=== PATIENT | male | born 1965 | race Caucasian/White ===

== ENCOUNTER 2018-07-04 16:30 | Emergency (ER) | payer SELFPAY ==
[2018-07-04 16:37] VITALS: TEMP 99.2
--- NOTE | 2018-07-04 16:39 | ED PDOC ---
HPI: Psych/Substance Abuse Time Seen by Provider: 07/04/18 16:38 Chief Complaint (Nursing): Substance Abuse Chief Complaint (Provider): etoh History Per: Patient, EMS Additional Complaint(s): 53-year-old male presents to emergency department acutely intoxicated. Patient walked up to a police manager and was noted to be intoxicated so EMS was called for patient to come here. Patient admits to drinking alcohol and snorting cocaine today. He denies any fall or trauma. PMD: unknown Past Medical History Reviewed: Historical Data, Nursing Documentation, Vital Signs Vital Signs: Last Vital Signs Temp 99.2 F 07/04/18 16:34 Pulse 90 07/04/18 16:34 Resp 18 07/04/18 16:34 BP 140/80 07/04/18 16:34 Pulse Ox 99 07/04/18 16:34 - Family History Family History: States: No Known Family Hx - Social History Current smoker - smoking cessation education provided: No Alcohol: > 2 Drinks/Day Drugs: Cocaine - Home Medications Home Medications: Ambulatory Orders Medication Instructions Recorded Cyclobenzaprine [Cyclobenzaprine 10 mg PO DAILY #7 tab 08/09/17 HCl] Naproxen [Naprosyn] 500 mg PO BID PRN #14 tablet 08/09/17 - Allergies Allergies/Adverse Reactions: Allergies Allergy/AdvReac Type Severity Reaction Status Date / Time No Known Allergies Allergy Unverified 08/09/17 01:57 Review of Systems ROS Statement: Except As Marked, All Systems Reviewed And Found Negative Psych: Positive for: Other (etoh and substance abuse) Physical Exam - Reviewed Nursing Documentation Reviewed: Yes Vital Signs Reviewed: Yes - Physical Exam Appears: Positive for: Well, Non-toxic, No Acute Distress Head Exam: Positive for: ATRAUMATIC Skin: Positive for: Normal Color. Negative for: Rash Eye Exam: Positive for: Normal appearance Neck: Positive for: Normal Cardiovascular/Chest: Positive for: Regular Rate, Rhythm Respiratory: Positive for: Normal Breath Sounds Back: Positive for: Normal Inspection Extremity: Positive for: Normal ROM Neurologic/Psych: Positive for: Alert, Other (Intoxicated, answer some questions appropriately) - Laboratory Results Result Diagrams: 07/04/18 17:15 07/04/18 17:15 - ECG O2 Sat by Pulse Oximetry: 99 Pulse Ox Interpretation: Normal Medical Decision Making Medical Decision Makin-year-old intoxicated male. Plan: CBC BMP BAL UDS Potassium is 3.0, 40 mEq of KDur oral dose ordered. BAL: 433 7:30 pm: Patient is awake, alert, has steady gait, asking to leave. Patient is stable for discharge. Disposition - Clinical Impression Clinical Impression: Alcohol intoxication - Patient ED Disposition Is Patient to be Admitted: No Counseled Patient/Family Regarding: Need For Followup - Disposition Referrals: [facility] [place] [Outside] Disposition: Routine/Home Disposition Time: 19:29 Condition: STABLE Instructions: Alcohol Abuse and Alcoholism (DC) Forms: [employer] ([place]) Results - Lab Results Lab Results: 07/04/18 07/04/18 07/04/18 17:40 17:15 17:15 WBC 6.2 RBC 4.19 L Hgb 13.9 Hct 41.8 MCV 99.7 H MCH 33.2 H MCHC 33.3 RDW 14.5 Plt Count 92 L MPV 8.0 Neut % (Auto) 67.3 Lymph % (Auto) 21.3 Har[place] % (Auto) 9.3 Eos % (Auto) 0.1 Baso % (Auto) 2.0 Neut # (Auto) 4.2 Lymph # (Auto) 1.3 Harney # (Auto) 0.6 Eos # (Auto) 0.0 Baso # (Auto) 0.1 Sodium 146 Potassium 3.0 L Chloride 105 Carbon Dioxide 26 Anion Gap 18 BUN 6 L Creatinine 0.7 L Est GFR ( Amer) > 60 Est GFR (Non-Af Amer) > 60 Random Glucose 120 H Calcium 8.4 Urine Opiates Screen Negative Urine Methadone Screen Negative Ur Barbiturates Screen Negative Ur Phencyclidine Scrn Negative Ur Amphetamines Screen Negative U Benzodiazepines Scrn Negative U Oth Cocaine Metabols Positive H U Cannabinoids Screen Negative Alcohol, Quantitative 433 H*
[2018-07-04 17:51] LABS: BASO # 0.1 K/uL (0.0-0.2); EOS % 0.1 % (0.0-4.0); HEMOGLOBIN 13.9 g/dL (12.0-18.0); LYMPH # 1.3 K/uL (1.0-4.3); LYMPH % 21.3 % (20.0-40.0); MEAN CELL VOLUME 99.7 fl (80.0-94.0); MEAN CORPUSCULAR HEMOGLOBIN 33.2 pg (27.0-31.0); MEAN CORPUSCULAR HGB CONC 33.3 g/dL (33.0-37.0); MONO # 0.6 K/uL (0.0-0.8); MONO % 9.3 % (0.0-10.0); NEUT # 4.2 K/uL (1.8-7.0); NEUT % 67.3 % (50.0-75.0); RBC 4.19 Mil/uL (4.40-5.90); RED CELL DISTRIBUTION WIDTH 14.5 % (11.5-14.5); WHITE BLOOD COUNT 6.2 K/uL (4.8-10.8)
[2018-07-04 18:04] LABS: BLOOD UREA NITROGEN 6 mg/dl (9-20); CALCIUM 8.4 mg/dL (8.4-10.2); GFR NON-AFRICAN AMERICAN > 60
[2018-07-04] MEDS ORDERED: Potassium Chloride 20 mEq ER Tab PO STA (18:09)
[2018-07-04 18:15] LABS: BARBITURATES, UR NEGATIVE (NEGATIVE); BENZODIAZEPINES, UR NEGATIVE (NEGATIVE); OPIATES, UR NEGATIVE (NEGATIVE); PHENCYCLIDINE, UR NEGATIVE (NEGATIVE)
[2018-07-04] MEDS ORDERED: Potassium Chloride 20 mEq ER Tab PO ONE (18:24)
[2018-07-04 19:55] VITALS: BP 131/79; PULSE 81; RESP 16; O2SAT 97
== END 2018-07-04 19:55 | disposition home or self-care (01) ==
LOC: H.ER 16:30
DX: F10.129 Alcohol abuse with intoxication, unspecified (principal); Y90.8 Blood alcohol level of 240 mg/100 ml or more
CPT/HCPCS: 80048; 85025; 99284; G0480